=== PATIENT | male | born 1990 | race Caucasian/White ===

== ENCOUNTER 2017-10-31 19:16 | Inpatient (IN) | payer OTHER ==
[2017-10-31] MEDS ORDERED: ONDANSETRON 4 MG TAB.RAPDIS PO ONE (19:54)
--- NOTE | 2017-10-31 20:03 | ER Document Report ---
ED Medical Screen (RME) - General Chief Complaint: Heat Exposure Stated Complaint: VOMITING/DIZZINESS Time Seen by Provider: 10/31/17 19:59 Notes: The patient is a 27-year-old male who presents with stomach cramps, nausea and vomiting after training outside all day. PE: Uncomfortable. Vomiting. Normal bowel sounds. Afebrile. RRR. I have greeted and performed a rapid initial assessment of this patient. A comprehensive ED assessment and evaluation of the patient, analysis of test results and completion of the medical decision making process will be conducted by additional ED providers. TRAVEL OUTSIDE OF THE [place] IN LAST 30 DAYS: No - Related Data Allergies/Adverse Reactions: No Known Allergies Allergy (Unverified 10/31/17 19:21) Physical Exam - Vital signs Vitals: Temp Pulse Resp BP Pulse Ox 98.0 F 90 18 114/73 97 10/31/17 19:21 10/31/17 19:21 10/31/17 19:21 10/31/17 19:21 10/31/17 19:21 Course - Vital Signs Vital signs: Temp Pulse Resp BP Pulse Ox 98.0 F 90 18 114/73 97 10/31/17 19:21 10/31/17 19:21 10/31/17 19:21 10/31/17 19:21 10/31/17 19:21
--- NOTE | 2017-10-31 20:56 | ER Document Report ---
ED General - General Chief Complaint: Heat Exposure Stated Complaint: VOMITING/DIZZINESS Time Seen by Provider: 10/31/17 19:59 Mode of Arrival: Ambulatory Information source: Patient Notes: 27-year-old male presents to ED for "symptoms of heat exhaustion ". He states he has been dizzy and vomiting since he was out in the heat yesterday. He states he ate and drank like he showed that he was still nauseated and dizzy last night and then he went out in the heat again today tried to drink his fluids and became vomiting nausea and dizziness again today. He is alert and oriented respirations regular and unlabored speaking in full sentences vital signs stable afebrile and walks with a even steady gait. TRAVEL OUTSIDE OF THE [place] IN LAST 30 DAYS: No - HPI Onset: Yesterday Onset/Duration: Intermittent Quality of pain: Achy Severity: Moderate Pain Level: 3 Associated symptoms: Body/muscle aches, Nausea, Vomiting, Other - Dizziness Exacerbated by: Denies Relieved by: Denies Similar symptoms previously: Yes Recently seen / treated by doctor: No - Related Data Allergies/Adverse Reactions: No Known Allergies Allergy (Unverified 10/31/17 19:21) Past Medical History - General Information source: Patient - Social History Smoking Status: Never Smoker Cigarette use (# per day): No Chew tobacco use (# tins/day): No Smoking Education Provided: No Drug Abuse: None Occupation: [employer] Lives with: Family Family History: Reviewed & Not Pertinent Patient has suicidal ideation: No Patient has homicidal ideation: No - Past Medical History Cardiac Medical History: Reports: None Pulmonary Medical History: Reports: None EENT Medical History: Reports: None Neurological Medical History: Reports: None Endocrine Medical History: Reports: None Renal/ Medical History: Reports: None GI Medical History: Reports: Other - Inguinal hernia Musculoskeltal Medical History: Reports None Skin Medical History: Reports None Psychiatric Medical History: Reports: None Traumatic Medical History: Reports: None Infectious Medical History: Reports: None Past Surgical History: Reports: Hx Inguinal Hernia - Right - Immunizations Immunizations up to date: Yes Hx Diphtheria, Pertussis, Tetanus Vaccination: Yes Review of Systems - Review of Systems Constitutional: Malaise EENT: No symptoms reported Cardiovascular: Dizziness Respiratory: No symptoms reported Gastrointestinal: Nausea, Vomiting Genitourinary: No symptoms reported Male Genitourinary: No symptoms reported Musculoskeletal: Muscle pain Skin: No symptoms reported Hematologic/Lymphatic: No symptoms reported Neurological/Psychological: No symptoms reported -: Yes All other systems reviewed and negative Physical Exam - Vital signs Vitals: Temp Pulse Resp BP Pulse Ox 98.0 F 90 18 114/73 97 10/31/17 19:21 10/31/17 19:21 10/31/17 19:21 10/31/17 19:21 10/31/17 19:21 Interpretation: Normal - General General appearance: Appears well, Alert In distress: Mild - HEENT Head: Normocephalic, Atraumatic Eyes: Normal Pupils: PERRL - Respiratory Respiratory status: No respiratory distress Chest status: Nontender Breath sounds: Normal Chest palpation: Normal - Cardiovascular Rhythm: Regular Heart sounds: Normal auscultation Murmur: No - Abdominal Inspection: Normal Distension: No distension Bowel sounds: Normal Tenderness: Nontender Organomegaly: No organomegaly - Back Back: Normal, Nontender - Extremities General upper extremity: Normal inspection, Nontender, Normal color, Normal ROM , Normal temperature General lower extremity: Normal inspection, Nontender, Normal color, Normal ROM , Normal temperature, Normal weight bearing. No: Stew's sign - Neurological Neuro grossly intact: Yes Cognition: Normal Orientation: AAOx4 Josh Coma Scale Eye Opening: Spontaneous Josh Coma Scale Verbal: Oriented [place] Coma Scale Motor: Obeys Commands Josh Coma Scale Total: 15 Speech: Normal Motor strength normal: LUE, RUE, LLE, RLE Sensory: Normal - Psychological Associated symptoms: Normal affect, Normal mood - Skin Skin Temperature: Warm Skin Moisture: Dry Skin Color: Normal Course - Re-evaluation Re-evalutation: 10/31/17 23:32 Dr. Gaines was consulted due to the first set of chemistries and CBC. Patient received 2 L of saline after the first set of blood and another 2 L of saline after the first blood draw and before the second 1. After the second set of blood draws Dr. Gaines was again consulted and she stated the patient had to come in. Dr. Pettit was consulted and he accepted admission for rhabdomyolysis and heat exhaustion. Dr. Pettit has put orders in for admission at this time. - Vital Signs Vital signs: Temp Pulse Resp BP Pulse Ox 98.0 F 90 18 114/73 97 10/31/17 19:21 10/31/17 19:21 10/31/17 19:21 10/31/17 19:21 10/31/17 19:21 - Laboratory Result Diagrams: 10/31/17 21:55 10/31/17 21:55 Laboratory results interpreted by me: 10/31/17 10/31/17 10/31/17 20:02 20:02 21:55 WBC 12.6 H RBC 6.04 H Hgb 18.4 H Hct 51.8 H Absolute Neutrophils 9.5 H Sodium 131.7 L 132.7 L Chloride 78 L 88 L Anion Gap 27 H BUN 68 H 62 H Creatinine 3.58 H 2.68 H Est GFR ( Amer) 25 L 35 L Est GFR (Non-Af Amer) 21 L 29 L Glucose 111 H Calcium 10.7 H Total Bilirubin 1.5 H Direct Bilirubin 0.5 H AST 479 H 356 H ALT 142 H 117 H Creatine Kinase > 3200 H 5832 H CK-MB (CK-2) Total Protein 10.4 H Albumin > 6.0 H Urine Protein Urine Ketones Urine Blood 10/31/17 10/31/17 21:55 21:55 WBC RBC Hgb Hct Absolute Neutrophils Sodium Chloride Anion Gap BUN Creatinine Est GFR ( Amer) Est GFR (Non-Af Amer) Glucose Calcium Total Bilirubin Direct Bilirubin AST ALT Creatine Kinase CK-MB (CK-2) 68.30 H Total Protein Albumin Urine Protein 30 H Urine Ketones TRACE H Urine Blood LARGE H Discharge - Discharge Clinical Impression: Rhabdomyolysis Qualifiers: Rhabdomyolysis type: non-traumatic Qualified Code(s): M62.82 - Rhabdomyolysis Heat exhaustion Qualifiers: Encounter type: initial encounter Qualified Code(s): T67.5XXA - Heat exhaustion , unspecified, initial encounter Disposition: ADMITTED INPATIENT Admitting Provider: Hospitalist - [facility] Unit Admitted: Medical Floor
[2017-10-31] MEDS: NORMAL SALINE 1000 ML 1,000 ML IV PRN ×4 (21:00→22:11)
[2017-10-31 21:07] LABS: ABSOLUTE LYMPHOCYTES (AUTO) 1.9 10^3/uL (0.5-4.7); ABSOLUTE MONOCYTES (AUTO) 1.2 10^3/uL (0.1-1.4); ABSOLUTE NEUT (AUTO) 9.5 10^3/uL (1.7-8.2); BASOPHILS % (AUTO) 0.3 % (0-2); EOSINOPHILS % (AUTO) 0.1 % (0-6); HEMATOCRIT 51.8 % (37.9-51.0); HEMOGLOBIN 18.4 g/dL (13.5-17.0); LYMPHOCYTES % (AUTO) 14.7 % (13-45); MEAN CORPUSCULAR HEMOGLOBIN 30.4 pg (27.0-33.4); MEAN CORPUSCULAR HGB CONC 35.5 g/dL (32.0-36.0); MEAN CORPUSCULAR VOLUME 86 fl (80-97); MONOCYTES % (AUTO) 9.6 % (3-13); PLATELET COUNT 332 10^3/uL (150-450); RED BLOOD COUNT 6.04 10^6/uL (4.35-5.55); RED CELL DISTRIBUTION WIDTH 13.5 % (11.5-14.0); SEGMENTED NEUTROPHILS % (AUTO) 75.3 % (42-78); TOTAL CELLS COUNTED % (AUTO) 100 %; WHITE BLOOD COUNT 12.6 10^3/uL (4.0-10.5)
[2017-10-31 21:21] LABS: ALANINE AMINOTRANSFERASE 142 U/L (21-72); ALKALINE PHOSPHATASE 116 U/L (38-126); ASPARTATE AMINO TRANSFERASE 479 U/L (17-59); BILIRUBIN,DIRECT 0.5 mg/dL (0.0-0.4); BILIRUBIN,TOTAL 1.5 mg/dL (0.2-1.3); BLOOD UREA NITROGEN 68 mg/dL (7-20); CALCIUM 10.7 mg/dL (8.4-10.2); GLUCOSE 111 mg/dL (75-110); LIPASE 99.6 U/L (23-300); TOTAL PROTEIN 10.4 g/dL (6.3-8.2)
[2017-10-31 21:26] LABS: CARBON DIOXIDE 27 mmol/L (22-30); CHLORIDE 78 mmol/L (98-107); SODIUM 131.7 mmol/L (137-145)
[2017-10-31 21:29] LABS: ALBUMIN > 6.0 g/dL (3.5-5.0)
[2017-10-31 21:30] LABS: ANION GAP 27 (5-19)
[2017-10-31 22:16] LABS: ABSOLUTE LYMPHOCYTES (AUTO) 1.6 10^3/uL (0.5-4.7); ABSOLUTE NEUT (AUTO) 7.7 10^3/uL (1.7-8.2); BASOPHILS % (AUTO) 0.3 % (0-2); EOSINOPHILS % (AUTO) 0.2 % (0-6); LYMPHOCYTES % (AUTO) 15.8 % (13-45); MEAN CORPUSCULAR HGB CONC 34.8 g/dL (32.0-36.0); MEAN CORPUSCULAR VOLUME 86 fl (80-97); MONOCYTES % (AUTO) 9.9 % (3-13); PLATELET COUNT 262 10^3/uL (150-450); RED BLOOD COUNT 5.22 10^6/uL (4.35-5.55); RED CELL DISTRIBUTION WIDTH 13.5 % (11.5-14.0); SEGMENTED NEUTROPHILS % (AUTO) 73.8 % (42-78); TOTAL CELLS COUNTED % (AUTO) 100 %; WHITE BLOOD COUNT 10.4 10^3/uL (4.0-10.5)
[2017-10-31 22:18] LABS: APPEARANCE,URINE CLOUDY; BILIRUBIN,URINE NEGATIVE (NEGATIVE); COLOR,URINE YELLOW; GLUCOSE, URINE NEGATIVE (NEGATIVE); HEMOGLOBIN 15.7 g/dL (13.5-17.0); KETONES,URINE TRACE mg/dL (NEGATIVE); LEUKOCYTE ESTERASE,URINE NEGATIVE (NEGATIVE); NITRITE,URINE NEGATIVE (NEGATIVE); PROTEIN,URINE 30 mg/dL (NEGATIVE); URINE SPECIFIC GRAVITY 1.015; UROBILINOGEN,URINE NEGATIVE mg/dL (<2.0)
[2017-10-31 22:33] LABS: ALANINE AMINOTRANSFERASE 117 U/L (21-72); ALKALINE PHOSPHATASE 88 U/L (38-126); ANION GAP 16 (5-19); ASPARTATE AMINO TRANSFERASE 356 U/L (17-59); BILIRUBIN,DIRECT 0.4 mg/dL (0.0-0.4); BILIRUBIN,TOTAL 1.2 mg/dL (0.2-1.3); BLOOD UREA NITROGEN 62 mg/dL (7-20); CALCIUM 8.7 mg/dL (8.4-10.2); CARBON DIOXIDE 29 mmol/L (22-30); CHLORIDE 88 mmol/L (98-107); GLUCOSE 93 mg/dL (75-110); POTASSIUM 4.5 mmol/L (3.6-5.0); SODIUM 132.7 mmol/L (137-145)
[2017-10-31 22:51] LABS: CREATINE KINASE 5832 U/L (55-170)
[2017-10-31] MEDS ORDERED: MAG HYDROX/AL HYDROX/SIMETH SUSP 30 ML UDCUP PO PRN (23:30)
[2017-10-31] MEDS ORDERED: ACETAMINOPHEN 325 MG TABLET PO PRN (23:30)
[2017-11-01 00:44] LABS: URINE AMPHETAMINES SCREEN NEGATIVE; URINE BARBITURATES SCREEN NEGATIVE; URINE BENZODIAZEPINES SCREEN NEGATIVE; URINE COCAINE SCREEN NEGATIVE; URINE MARIJUANA (THC) SCREEN NEGATIVE; URINE METHADONE SCREEN NEGATIVE; URINE PHENCYCLIDINE SCREEN NEGATIVE
[2017-11-01] MEDS: NORMAL SALINE 1000 ML 1,000 ML IV SCH ×2 (01:35→06:57)
[2017-11-01] MEDS: HEPARIN SOD (PORCINE) 5,000 UNIT/ML 1 ML SYRINGE SUBCUT SCH ×3 (05:37→23:02)
[2017-11-01 05:45] LABS: ABSOLUTE LYMPHOCYTES (AUTO) 1.9 10^3/uL (0.5-4.7); ABSOLUTE MONOCYTES (AUTO) 0.9 10^3/uL (0.1-1.4); ABSOLUTE NEUT (AUTO) 5.8 10^3/uL (1.7-8.2); BASOPHILS % (AUTO) 0.2 % (0-2); EOSINOPHILS % (AUTO) 0.5 % (0-6); HEMATOCRIT 39.7 % (37.9-51.0); HEMOGLOBIN 13.7 g/dL (13.5-17.0); LYMPHOCYTES % (AUTO) 22.2 % (13-45); MEAN CORPUSCULAR HGB CONC 34.4 g/dL (32.0-36.0); MEAN CORPUSCULAR VOLUME 87 fl (80-97); MONOCYTES % (AUTO) 10.8 % (3-13); PLATELET COUNT 197 10^3/uL (150-450); RED BLOOD COUNT 4.55 10^6/uL (4.35-5.55); RED CELL DISTRIBUTION WIDTH 13.7 % (11.5-14.0); SEGMENTED NEUTROPHILS % (AUTO) 66.3 % (42-78); TOTAL CELLS COUNTED % (AUTO) 100 %; WHITE BLOOD COUNT 8.7 10^3/uL (4.0-10.5)
[2017-11-01 06:08] LABS: ALANINE AMINOTRANSFERASE 104 U/L (21-72); ALBUMIN 3.8 g/dL (3.5-5.0); ALKALINE PHOSPHATASE 66 U/L (38-126); ANION GAP 12 (5-19); ASPARTATE AMINO TRANSFERASE 340 U/L (17-59); BILIRUBIN,DIRECT 0.4 mg/dL (0.0-0.4); BLOOD UREA NITROGEN 43 mg/dL (7-20); CALCIUM 8.2 mg/dL (8.4-10.2); CARBON DIOXIDE 28 mmol/L (22-30); CHLORIDE 98 mmol/L (98-107); GLUCOSE 88 mg/dL (75-110); POTASSIUM 3.6 mmol/L (3.6-5.0); SODIUM 137.6 mmol/L (137-145); TOTAL PROTEIN 6.4 g/dL (6.3-8.2)
--- NOTE | 2017-11-01 06:08 | PDOC H&P ---
History of Present Illness Admission Date/PCP: 10/31/17 23:33 Patient complains of: Nausea and vomiting History of Present Illness: JESSICA BARRON is a 27 year old male without past medical history presents to the emergency room after 8 hours of nausea and vomiting following 2 days of intensive outdoor physical training. In the emergency room is found to be in acute renal failure with rhabdomyolysis. He denies fever, shortness of breath or chest pain. He denies previous episode, medications, excessive caffeine, energy drinks or drugs. He receives IV fluids and referred to the hospitalist for admission. Past Medical History Medical History: None Cardiac Medical History: Reports: None Pulmonary Medical History: Reports: None EENT Medical History: Reports: None Neurological Medical History: Reports: None Endocrine Medical History: Reports: None Renal/ Medical History: Reports: None GI Medical History: Reports: Other - Inguinal hernia Musculoskeltal Medical History: Reports: None Skin Medical History: Reports: None Psychiatric Medical History: Reports: None Traumatic Medical History: Reports: None Infectious Medical History: Reports: None Past Surgical History Past Surgical History: Reports: Herniorrhaphy Social History Information Source: Patient, [facility] Records Lives with: Family Smoking Status: Never Smoker Frequency of Alcohol Use: None Hx Recreational Drug Use: No Drugs: None - Advance Directive Resuscitation Status: Full Code Family History Family History: DM Parental Family History Reviewed: Yes Children Family History Reviewed: Yes Sibling(s) Family History Reviewed.: Yes Medication/Allergy Allergies/Adverse Reactions: No Known Allergies Allergy (Unverified 10/31/17 19:21) Review of Systems Constitutional: ABSENT: chills, fever(s), headache(s), weight gain, weight loss Eyes: ABSENT: visual disturbances Ears: ABSENT: hearing changes Cardiovascular: ABSENT: chest pain, dyspnea on exertion, edema, orthropnea, palpitations Respiratory: ABSENT: cough, hemoptysis Gastrointestinal: ABSENT: abdominal pain, constipation, diarrhea, hematemesis, hematochezia, nausea, vomiting Genitourinary: ABSENT: dysuria, hematuria Musculoskeletal: ABSENT: joint swelling Integumentary: ABSENT: rash, wounds Neurological: ABSENT: abnormal gait, abnormal speech, confusion, dizziness, focal weakness, syncope Psychiatric: ABSENT: anxiety, depression, homidical ideation, suicidal ideation Endocrine: ABSENT: cold intolerance, heat intolerance, polydipsia, polyuria Hematologic/Lymphatic: ABSENT: easy bleeding, easy bruising Physical Exam Vital Signs: Temp Pulse Resp BP Pulse Ox 97.8 F 65 16 125/56 L 96 11/01/17 01:52 11/01/17 01:52 11/01/17 01:52 11/01/17 01:52 11/01/17 01:52 Intake & Output 10/30/17 10/31/17 11/01/17 11:59 11:59 11:59 Weight 69.4 kg General appearance: PRESENT: cooperative, mild distress, thin. ABSENT: disheveled, hard of hearing Head exam: PRESENT: atraumatic, normocephalic Eye exam: PRESENT: conjunctiva pink, EOMI, PERRLA. ABSENT: scleral icterus Ear exam: PRESENT: normal external ear exam Mouth exam: PRESENT: dry mucosa, neck supple, tongue midline. ABSENT: laceration Neck exam: ABSENT: carotid bruit, JVD, lymphadenopathy, thyromegaly Respiratory exam: PRESENT: clear to auscultation elaine. ABSENT: rales, rhonchi, wheezes Cardiovascular exam: PRESENT: RRR. ABSENT: diastolic murmur, rubs, systolic murmur Pulses: PRESENT: normal dorsalis pedis pul Vascular exam: PRESENT: normal capillary refill GI/Abdominal exam: PRESENT: normal bowel sounds, soft. ABSENT: distended, guarding, mass, organolmegaly, rebound, tenderness Rectal exam: PRESENT: deferred Extremities exam: PRESENT: full ROM. ABSENT: calf tenderness, clubbing, pedal edema Neurological exam: PRESENT: alert, awake, oriented to person, oriented to place , oriented to time, oriented to situation, CN II-XII grossly intact. ABSENT: motor sensory deficit Psychiatric exam: PRESENT: appropriate affect, normal mood. ABSENT: homicidal ideation, suicidal ideation Skin exam: PRESENT: dry, intact, warm. ABSENT: cyanosis, rash Assessment & Plan - Diagnosis (1) Acute renal failure Is this a current diagnosis for this admission?: Yes Plan: Secondary to rhabdomyolysis complicated by prerenal azotemia and dehydration. Avoid nephrotoxic meds and doses, IV fluid challenge, consider bicarb, follow- up chemistry and total CK. (2) Heat exhaustion Qualifiers: Encounter type: initial encounter Qualified Code(s): T67.5XXA - Heat exhaustion, unspecified, initial encounter Is this a current diagnosis for this admission?: Yes Plan: IV fluid challenge, symptomatically management education (3) Rhabdomyolysis Qualifiers: Rhabdomyolysis type: non-traumatic Qualified Code(s): M62.82 - Rhabdomyolysis Is this a current diagnosis for this admission?: Yes Plan: Secondary to excessive physical exertion, IV fluid challenge, consider bicarb, follow-up chemistry, total CK and education. - Time Time Spent: 50 to 70 Minutes - Inpatient Certification Medical Necessity: Need Close Monitoring Due to Risk of Patient Decompensation
[2017-11-01 06:33] LABS: CREATINE KINASE 6895 U/L (55-170)
[2017-11-01 10:38] LABS: CREATINE KINASE 6844 U/L (55-170)
[2017-11-01] MEDS: NORMAL SALINE 1000 ML 1,000 ML IV PRN ×2 (15:32→23:19)
--- NOTE | 2017-11-01 17:50 | PDOC PROGRESS REPORT ---
Subjective Progress Note for:: 11/01/17 Subjective:: Discussed with patient's nurse, no new active issues. Patient tolerating p.o. and therapy without challenges. He admits much better but some muscle cramping overnight however denies shortness of breath, vomiting. Labs reveal market improvement of renal failure. However total CK continues to rise modestly. Reason For Visit: ARF,RHABDO,NAUSEA VOMITING Physical Exam Vital Signs: Temp Pulse Resp BP Pulse Ox 98.0 F 50 L 20 121/57 L 98 11/01/17 15:59 11/01/17 15:59 11/01/17 11:51 11/01/17 15:59 11/01/17 15:59 Intake & Output 10/31/17 11/01/17 11/02/17 11:59 11:59 11:59 Intake Total 1000 Balance 1000 Weight 69.4 kg General appearance: PRESENT: no acute distress, well-developed, well-nourished Head exam: PRESENT: atraumatic, normocephalic Eye exam: PRESENT: conjunctiva pink, EOMI, PERRLA. ABSENT: scleral icterus Ear exam: PRESENT: normal external ear exam Mouth exam: PRESENT: moist, tongue midline Neck exam: ABSENT: carotid bruit, JVD, lymphadenopathy, thyromegaly Respiratory exam: PRESENT: clear to auscultation elaine. ABSENT: rales, rhonchi, wheezes Cardiovascular exam: PRESENT: RRR. ABSENT: diastolic murmur, rubs, systolic murmur Pulses: PRESENT: normal dorsalis pedis pul Vascular exam: PRESENT: normal capillary refill GI/Abdominal exam: PRESENT: normal bowel sounds, soft. ABSENT: distended, guarding, mass, organolmegaly, rebound, tenderness Rectal exam: PRESENT: deferred Extremities exam: PRESENT: full ROM. ABSENT: calf tenderness, clubbing, pedal edema Neurological exam: PRESENT: alert, awake, oriented to person, oriented to place , oriented to time, oriented to situation, CN II-XII grossly intact. ABSENT: motor sensory deficit Psychiatric exam: PRESENT: appropriate affect, normal mood. ABSENT: homicidal ideation, suicidal ideation Skin exam: PRESENT: dry, intact, warm. ABSENT: cyanosis, rash Results Laboratory Results: 11/01/17 04:02 11/01/17 04:02 11/01/17 11/01/17 04:02 04:02 WBC 8.7 RBC 4.55 Hgb 13.7 Hct 39.7 MCV 87 MCH 30.0 MCHC 34.4 RDW 13.7 Plt Count 197 Seg Neutrophils % 66.3 Lymphocytes % 22.2 Monocytes % 10.8 Eosinophils % 0.5 Basophils % 0.2 Absolute Neutrophils 5.8 Absolute Lymphocytes 1.9 Absolute Monocytes 0.9 Absolute Eosinophils 0.0 Absolute Basophils 0.0 Sodium 137.6 Potassium 3.6 Chloride 98 Carbon Dioxide 28 Anion Gap 12 BUN 43 H Creatinine 1.47 H Est GFR ( Amer) > 60 Est GFR (Non-Af Amer) 58 L Glucose 88 Calcium 8.2 L Total Bilirubin 1.0 AST 340 H ALT 104 H Alkaline Phosphatase 66 Total Protein 6.4 Albumin 3.8 11/01/17 04:02 Creatine Kinase 6895 H Assessment & Plan - Diagnosis (1) Acute renal failure Is this a current diagnosis for this admission?: Yes Plan: Secondary to rhabdomyolysis complicated by prerenal azotemia and dehydration. Rapidly resolving, avoid nephrotoxic meds and doses, IV fluid challenge, consider bicarb, follow-up chemistry and total CK. (2) Heat exhaustion Qualifiers: Encounter type: initial encounter Qualified Code(s): T67.5XXA - Heat exhaustion, unspecified, initial encounter Is this a current diagnosis for this admission?: Yes Plan: IV fluid challenge, symptomatically management, resolved, education (3) Rhabdomyolysis Qualifiers: Rhabdomyolysis type: non-traumatic Qualified Code(s): M62.82 - Rhabdomyolysis Is this a current diagnosis for this admission?: Yes Plan: Secondary to excessive physical exertion, IV fluid challenge, consider bicarb, follow-up chemistry, total CK and education. Total CK mildly elevated from initial evaluation. Continue normal saline at 2 50/h. Reevaluate total CK q. 12 hours. - Time Time Spent with patient: 15-24 minutes - Inpatient Certification Medical Necessity: Need Close Monitoring Due to Risk of Patient Decompensation
[2017-11-02 06:02] LABS: ANION GAP 6 (5-19); BLOOD UREA NITROGEN 17 mg/dL (7-20); CALCIUM 8.4 mg/dL (8.4-10.2); CARBON DIOXIDE 28 mmol/L (22-30); CHLORIDE 107 mmol/L (98-107); GLUCOSE 82 mg/dL (75-110); POTASSIUM 4.5 mmol/L (3.6-5.0); SODIUM 141.3 mmol/L (137-145)
[2017-11-02] MEDS: HEPARIN SOD (PORCINE) 5,000 UNIT/ML 1 ML SYRINGE SUBCUT SCH ×2 (06:19→13:24)
[2017-11-02 06:26] LABS: CREATINE KINASE 4894 U/L (55-170)
[2017-11-02] MEDS ORDERED: 1/2 NORMAL SALINE 1,000 ML IV ONE (11:31)
--- NOTE | 2017-11-02 11:39 | PDOC TRANSFER SUMMARY ---
General - Admit/Disc Date/PCP Admission Date/Primary Care Provider: 10/31/17 23:33 Discharge Date: 11/02/17 - Discharge Diagnosis (1) Rhabdomyolysis Is this a current diagnosis for this admission?: Yes Summary: Presented to the ED on 10/31 following 8 hours of nausea and vomiting in the setting of 2 days of intensive outdoor physical training. Found to be acute renal failure with rhabdomyolysis. Treated conservatively with IV fluids, anti- emetics, and rest. Clinically improving on day of discharge. CK levels are downtrending, however remain elevated. Renal function has normalized. LFTs downtrending however remains elevated as well. Outpatient plan for the next 3 days: - Please rest and avoid exercise and sun exposure - Adequate fluid intake - Avoid alcohol Please follow with your doctor on Sunday 11/05 and have the following labs checked: 1. Basic metabolic panel 2. Liver function studies 3. Creatinine Kinase (2) LFTs abnormal Is this a current diagnosis for this admission?: Yes Summary: Due to rhabdo. Multiple providers asked patient about EtOH use. He denies recent usage. This was in front of his superiors. Would re-check LFTs/ labs on Sunday. (3) Acute renal failure Is this a current diagnosis for this admission?: Yes Summary: Resolved with IVF. (4) Heat exhaustion Is this a current diagnosis for this admission?: Yes Summary: Per above. Improved. Rest over weekend. - Additional Information Resuscitation Status: Full Code Discharge Diet: As Tolerated Discharge Activity: Balance Activity w/Rest Home Medications: No Home Medications 11/01/17 History of Present Illness Admission Date/PCP: 10/31/17 23:33 Patient complains of: nausea and vomiting History of Present Illness: JESSICA BARRON is a 27 year old male with no PMH who presents to the emergency room on 10/31/17 after 8 hours of nausea and vomiting following 2 days of intensive outdoor physical training. In the emergency room is found to be in acute renal failure with rhabdomyolysis. He denies fever, shortness of breath or chest pain. He denies previous episode, medications, excessive caffeine, energy drinks or drugs. He receives IV fluids and referred to the hospitalist for admission. Physical Exam Vital Signs: Temp Pulse Resp BP Pulse Ox 97.7 F 42 L 20 144/75 H 100 11/02/17 07:28 11/02/17 07:28 11/02/17 07:28 11/02/17 07:28 11/02/17 07:28 Intake & Output 11/01/17 11/02/17 11/03/17 06:59 06:59 06:59 Intake Total 3640 Output Total 1000 Balance 2640 Weight 69.4 kg 68.9 kg General appearance: PRESENT: no acute distress, cooperative, well-developed, well-nourished Head exam: PRESENT: normocephalic Mouth exam: PRESENT: moist Respiratory exam: PRESENT: unlabored. ABSENT: tachypnea Cardiovascular exam: PRESENT: RRR GI/Abdominal exam: PRESENT: normal bowel sounds, soft. ABSENT: tenderness Extremities exam: ABSENT: +1 edema Musculoskeletal exam: PRESENT: ambulatory Neurological exam: PRESENT: alert, awake, oriented to time Psychiatric exam: PRESENT: appropriate affect Skin exam: PRESENT: dry, intact Results Laboratory Results: 11/01/17 04:02 11/02/17 05:02 11/02/17 05:02 Sodium 141.3 Potassium 4.5 Chloride 107 Carbon Dioxide 28 Anion Gap 6 BUN 17 Creatinine 0.76 Est GFR ( Amer) > 60 Est GFR (Non-Af Amer) > 60 Glucose 82 Calcium 8.4 11/01/17 11/01/17 11/02/17 04:02 18:15 05:02 Creatine Kinase 6895 H 6616 H 4894 H Transfer Plan - Time Spent with Patient Time spent with patient: Less than 30 Minutes Qualifiers - * PATIENT BEING DISCHARGED WITH ANY OF THE FOLLOWING DIAGNOSIS: No
[2017-11-02 12:08] VITALS: BP 139/78
== END 2017-11-02 13:37 | disposition home or self-care (01) | DRG 683 ==
LOC: ER 19:16 → EH 23:33 → 4N 11-01 01:45
PROVIDERS: ADMIT Internal Medicine; ATTEND Internal Medicine
DX: N17.9 Acute kidney failure, unspecified (principal); M62.82 Rhabdomyolysis; T67.5XXA Heat exhaustion, unspecified, initial encounter; K40.90 Unilateral inguinal hernia, without obstruction or gangrene, not specified as recurrent; X30.XXXA Exposure to excessive natural heat, initial encounter; Y93.9 Activity, unspecified; Y93.A9 Activity, other involving cardiorespiratory exercise; Y92.9 Unspecified place or not applicable; Y99.1 Military activity; Z83.3 Family history of diabetes mellitus
CPT/HCPCS: 36415; 80048; 80053; 80307; 81001; 82550; 82553; 83690; 83735; 85025; 96360; 99285; J1644; J7030; S0119

== ENCOUNTER 2018-10-20 22:00 | Emergency (ER) | payer OTHER ==
[2018-10-20] MEDS ORDERED: LIDOCAINE 1% INJ-PF (10 MG/ML) 30 ML SDV INJ ONE (23:50)
[2018-10-20] MEDS ORDERED: OXYCODONE-ACETAMINOPHEN 5-325 MG TABLET PO ONE (23:51)
[2018-10-20] MEDS ORDERED: IBUPROFEN 800 MG TABLET PO ONE (23:51)
--- NOTE | 2018-10-20 23:53 | ER Document Report ---
ED Medical Screen (RME) - General Chief Complaint: Laceration Stated Complaint: CHEEK LACERATION Time Seen by Provider: 10/20/18 23:50 Notes: 28-year-old male with visit for left facial laceration. States trip and fall downstairs. Fell down 3 or 4 stairs at his own home. Has a gash in his left face. No active bleeding. TD he believes is up-to-date I have treated and performed a rapid initial assessment of this patient. A comp rehensive ED assessment and evaluation of the patient, analysis of test results and completion of medical decision making process will be conducted by additional ED providers. PHYSICAL EXAMINATION: GENERAL: Well-appearing, well-nourished and in no acute distress. A&Ox4. Answers questions appropriately. LUNGS: Breath sounds clear to auscultation bilaterally and equal. No wheezes rales or rhonchi. HEART: Regular rate and rhythm without murmurs, rubs, gallops. ABDOMEN: Soft, nondistended abdomen. No guarding, no rebound. Normal bowel sounds present. No CVA tenderness bilaterally. + mild epigastric tenderness (cannot elicit thorough abd exam w/o table, however). Extremities: No cyanosis, clubbing, or edema b/l. NEUROLOGICAL: Normal speech, normal gait. PSYCH: Normal mood, normal affect. Maxillofacial: 1 to 2 cm laceration left face TRAVEL OUTSIDE OF THE [place] IN LAST 30 DAYS: No - Related Data Allergies/Adverse Reactions: No Known Allergies Allergy (Verified 11/01/17 07:49) Past Medical History Renal/ Medical History: Denies: Hx Peritoneal Dialysis Past Surgical History: Reports: Hx Herniorrhaphy, Hx Inguinal Hernia - Right - Immunizations Immunizations up to date: Yes Hx Diphtheria, Pertussis, Tetanus Vaccination: Yes History of Influenza Vaccine for 01/2017 - 06/2017 Season: Yes Influenza Administration Date for 01/2017 - 06/2017 Season: 02/21/17 Physical Exam - Vital signs Vitals: Temp Pulse Resp BP Pulse Ox 98.6 F 70 16 148/71 H 96 10/20/18 22:12 10/20/18 22:12 10/20/18 22:12 10/20/18 22:12 10/20/18 22:12 Course - Vital Signs Vital signs: Temp Pulse Resp BP Pulse Ox 98.6 F 70 16 148/71 H 96 10/20/18 22:12 10/20/18 22:12 10/20/18 22:12 10/20/18 22:12 10/20/18 22:12
[2018-10-21] MEDS ORDERED: LIDOCAINE 1%/EPINEPHRINE INJ 20 ML VIAL INJ ONE (01:05)
--- NOTE | 2018-10-21 01:09 | ER Document Report ---
ED Wound - General Chief Complaint: Laceration Stated Complaint: CHEEK LACERATION Time Seen by Provider: 10/20/18 23:50 Notes: Patient is a 28-year-old male that comes to the emergency department for chief complaint of laceration to the left cheek area. He states he tripped and fell, hit his face on a step. States the area was bleeding heavily. He denies getting knocked out, denies drinking any alcohol, denies neck pain, numbness, weakness. He denies any other injuries. He is up-to-date on his tetanus within 5 years. TRAVEL OUTSIDE OF THE [place] IN LAST 30 DAYS: No - Related Data Allergies/Adverse Reactions: No Known Allergies Allergy (Verified 10/21/18 00:28) Past Medical History - General Information source: Patient - Social History Smoking Status: Never Smoker Frequency of alcohol use: Occasional Drug Abuse: None Lives with: Alone, Friend Family History: DM Patient has suicidal ideation: No Patient has homicidal ideation: No Renal/ Medical History: Denies: Hx Peritoneal Dialysis Past Surgical History: Reports: Hx Herniorrhaphy, Hx Inguinal Hernia - Right - Immunizations Immunizations up to date: Yes Hx Diphtheria, Pertussis, Tetanus Vaccination: Yes Review of Systems - Review of Systems Constitutional: No symptoms reported EENT: See HPI Cardiovascular: No symptoms reported Respiratory: No symptoms reported Gastrointestinal: No symptoms reported Genitourinary: No symptoms reported Male Genitourinary: No symptoms reported Musculoskeletal: No symptoms reported Skin: See HPI Hematologic/Lymphatic: No symptoms reported Neurological/Psychological: No symptoms reported Physical Exam - Vital signs Vitals: Temp Pulse Resp BP Pulse Ox 98.6 F 70 16 148/71 H 96 10/20/18 22:12 10/20/18 22:12 10/20/18 22:12 10/20/18 22:12 10/20/18 22:12 - Notes Notes: GENERAL: Alert, interacts well. No acute distress. HEAD: Normocephalic. There is a 3 cm irregular laceration over the medial cheek inferior to the zygomatic area which comes close but does not reach the lip or nose. Laceration is mainly vertical. Partial-thickness. Currently bleeding. EYES: Pupils equal, round, and reactive to light. Extraocular movements intact. ENT: Oral mucosa moist, tongue midline. Oropharynx unremarkable. Airway patent. No dental injury noted. Nares patent, no nasal septal hematoma, no epistaxis, no sign of trauma to the nose. TM's intact. NECK: Full range of motion. Supple. Trachea midline. LUNGS: Clear to auscultation bilaterally, no wheezes, rales, or rhonchi. No respiratory distress. HEART: Regular rate and rhythm. No murmur ABDOMEN: Soft, non-tender. Non-distended. EXTREMITIES: Moves all 4 extremities spontaneously. No edema, normal radial and dorsalis pedis pulses bilaterally. No cyanosis. BACK: no cervical, thoracic, lumbar midline tenderness. NEUROLOGICAL: Alert and oriented x3. Normal speech. Cranial nerves II through XII grossly intact. PSYCH: Normal affect, normal mood. SKIN: Warm, dry, normal turgor. No rashes or lesions noted. Course - Vital Signs Vital signs: Temp Pulse Resp BP Pulse Ox 98.6 F 64 18 138/68 H 97 10/21/18 02:31 10/21/18 02:31 10/21/18 02:31 10/21/18 02:31 10/21/18 02:31 Procedures - Laceration/Wound Repair left face/cheek Wound length (cm): 3 Wound's Depth, Shape: Irregular Laceration pre-procedure: Sterile PPE donned, Sterile drapes applied, Shur-Clens applied Anesthetic type: 1% Lidocaine w/epi Volume Anesthetic (mLs): 3 Wound explored: No foreign body removed Irrigated w/ Saline (mLs): 50 Wound Repaired With: Sutures Suture Size/Type: 5:0, Nylon Number of Sutures: 7 Layer Closure?: No Post-procedure wound care: Sterile dressing applied Post-procedure NV exam normal: Yes Complications: No Discharge - Discharge Clinical Impression: Facial laceration Qualifiers: Encounter type: initial encounter Qualified Code(s): S01.81XA - Laceration without foreign body of other part of head, initial encounter Condition: Stable Disposition: HOME, SELF-CARE Instructions: Oral Narcotic Medication ([facility]) Additional Instructions: The sutures need to be removed in approximately 7 days at a medical facility. Keep clean, clean with soap and water, dab dry, avoid soaking or scrubbing the area. You can place a thin film of topical antibiotic over the area. Take antibiotics as prescribed to completion. You were given an opiate for pain tonight. Take anti-inflammatories at home, you can apply a cold pack to the swollen area as well. Return for any concerning symptoms including vomiting, confusion, severe headache, developing pain/redness/swelling/discolored discharge at the wound, fever, or any other concerning symptoms. Prescriptions: Cephalexin Monohydrate [Keflex 500 mg Capsule] 500 mg PO TID 5 Days #15 capsule
[2018-10-21] MEDS ORDERED: HYDROCODONE/ACETAMINOPHEN 5-325 MG (6 TAB/ER DISP) PO PRN (02:27)
[2018-10-21 02:33] VITALS: BP 138/68
== END 2018-10-21 02:42 | disposition home or self-care (01) ==
LOC: ER 22:00
DX: S01.412A Laceration without foreign body of left cheek and temporomandibular area, initial encounter (principal); W10.9XXA Fall (on) (from) unspecified stairs and steps, initial encounter
CPT/HCPCS: 99282; 12013; J3490